=== PATIENT | female | born 1980 | race African-American/Black ===

== ENCOUNTER 2017-03-03 19:58 | Emergency (ER) | payer MEDICAID ==
[~2017-03-03] VITALS: Ht 154.9 cm; Wt 87.1 kg
--- NOTE | 2017-03-03 20:04 | PHYS DOC ---
Adult General Chief Complaint Chief Complaint: ABDOMINAL PAIN HPI HPI Patient is a 36 year old female presenting to the emergency department for evaluation of sudden onset right-sided abdominal pain radiating towards her right flank and associated with nausea but no vomiting diarrhea constipation dysuria hematuria vaginal bleeding or vaginal discharge. She says that that this does not recur with trauma or overuse that she was at work at the time. Patient says that she has never had pain like this before in the past that she is overall healthy except for fibromyalgia. Review of Systems Review of Systems Constitutional: Denies fever or chills [] Respiratory: Denies cough or shortness of breath [] Cardiovascular: No additional information not addressed in HPI [] GI: + abdominal pain, nausea. No vomiting, bloody stools or diarrhea [] : Denies dysuria or hematuria [] Musculoskeletal: + back pain Neurologic: Denies headache, focal weakness or sensory changes [] Current Medications Current Medications Current Medications Medications (Trade) Dose Ordered Sig/Dillon Start Time Stop Time Status Last Admin Dose Admin Fentanyl Citrate (Fentanyl 2ml Vial) 75 mcg 1X ONCE 03/03/17 21:00 03/03/17 21:01 DC 03/03/17 20:47 75 MCG Ketorolac Tromethamine (Toradol) 30 mg 1X ONCE 03/03/17 21:00 03/03/17 21:01 DC 03/03/17 20:46 30 MG Ondansetron HCl (Zofran) 8 mg 1X ONCE 03/03/17 21:00 03/03/17 21:01 DC 03/03/17 20:46 8 MG Oxycodone/ Acetaminophen (Percocet 5/325) 2 tab 1X ONCE 03/04/17 00:00 03/04/17 00:01 Sodium Chloride 1,000 ml @ 1,000 mls/hr 1X ONCE 03/03/17 21:00 03/03/17 21:59 DC 03/03/17 20:45 1,000 MLS/HR Allergies Allergies Allergies Coded Allergies Type Severity Reaction Last Updated Verified Penicillins Allergy Intermediate 03/03/17 Yes Physical Exam Physical Exam Constitutional: Well developed, well nourished, no acute distress, non-toxic appearance. [] Cardiovascular:Heart rate regular rhythm, no murmur [] Lungs & Thorax: Bilateral breath sounds clear to auscultation [] Abdomen: Bowel sounds normal, soft, + RLQ and RUQ tenderness, no rebound or guarding, no masses, no pulsatile masses. [] Skin: Warm, dry, no erythema, no rash. [] Back: + R CVA tenderness, no CVA tenderness. [] Extremities: No tenderness, no cyanosis, no clubbing, ROM intact, no edema. [] Neurologic: Alert and oriented X 3, normal motor function, normal sensory function, no focal deficits noted. [] Current Patient Data Vital Signs Vital Signs Date Time Temp Pulse Resp B/P (MAP) Pulse Ox O2 Delivery O2 Flow Rate FiO2 03/03/17 23:00 58 16 122/61 (81) 100 Room Air 03/03/17 20:14 98.0 98.0 Lab Values Laboratory Tests Test 03/03/17 20:15 03/03/17 20:21 Urine Collection Type Unknown Urine Color Esther Urine Clarity Clear Urine pH 6.5 Urine Specific [place] >=1.030 Urine Protein Negative mg/dL (NEG-TRACE) Urine Glucose (UA) Negative mg/dL (NEG) Urine Ketones (Stick) Trace mg/dL (NEG) Urine Blood Negative (NEG) Urine Nitrite Negative (NEG) Urine Bilirubin Small (NEG) Urine Urobilinogen Dipstick 1.0 mg/dL (0.2 mg/dL) Urine Leukocyte Esterase Trace (NEG) Urine RBC 3-5 /HPF (0-2) Urine WBC 1-4 /HPF (0-4) Urine Squamous Epithelial Cells Mod /LPF Urine Bacteria Moderate /HPF (0-FEW) Urine Mucus Marked /LPF White Blood Count 6.2 x10^3/uL (4.0-11.0) Red Blood Count 4.24 x10^6/uL (3.50-5.40) Hemoglobin 13.3 g/dL (12.0-15.5) Hematocrit 40.8 % (36.0-47.0) Mean Corpuscular Volume 96 fL (79-100) Mean Corpuscular Hemoglobin 32 pg (25-35) Mean Corpuscular Hemoglobin Concent 33 g/dL (31-37) Red Cell Distribution Width 14.7 % (11.5-14.5) H Platelet Count 177 x10^3/uL (140-400) Neutrophils (%) (Auto) 59 % (31-73) Lymphocytes (%) (Auto) 30 % (24-48) Monocytes (%) (Auto) 8 % (0-9) Eosinophils (%) (Auto) 2 % (0-3) Basophils (%) (Auto) 1 % (0-3) Neutrophils # (Auto) 3.7 x10^3uL (1.8-7.7) Lymphocytes # (Auto) 1.9 x10^3/uL (1.0-4.8) Monocytes # (Auto) 0.5 x10^3/uL (0.0-1.1) Eosinophils # (Auto) 0.1 x10^3/uL (0.0-0.7) Basophils # (Auto) 0.1 x10^3/uL (0.0-0.2) Sodium Level 140 mmol/L (136-145) Potassium Level 3.7 mmol/L (3.5-5.1) Chloride Level 104 mmol/L (98-107) Carbon Dioxide Level 25 mmol/L (21-32) Anion Gap 11 (6-14) Blood Urea Nitrogen 8 mg/dL (7-20) Creatinine 1.1 mg/dL (0.6-1.0) H Estimated GFR (Cockcroft-Gault) 68.8 BUN/Creatinine Ratio 7 (6-20) Glucose Level 94 mg/dL (70-99) Calcium Level 8.9 mg/dL (8.5-10.1) Magnesium Level 2.0 mg/dL (1.8-2.4) Total Bilirubin 0.4 mg/dL (0.2-1.0) Aspartate Amino Transferase (AST) 14 U/L (15-37) L Alanine Aminotransferase (ALT) 16 U/L (14-59) Alkaline Phosphatase 68 U/L (46-116) Total Protein 7.2 g/dL (6.4-8.2) Albumin 3.4 g/dL (3.4-5.0) Albumin/Globulin Ratio 0.9 (1.0-1.7) L Lipase 127 U/L (73-393) Laboratory Tests 03/03/17 20:21 Laboratory Tests 03/03/17 20:21 EKG EKG [] Radiology/Procedures Radiology/Procedures Abdominal and Pelvis CT, Without Contrast: History: Sudden onset of right flank to right upper quadrant pain. Comparison: None. Procedure: Axial images are obtained of the abdomen and pelvis, without IV or oral contrast. CT Abdomen without Contrast: Findings: Evaluation of solid organs is limited without contrast. Evaluation of stomach and bowel is limited without oral contrast. Liver: Normal. Spleen: Normal. Pancreas: Normal. Adrenal Glands: Normal. Kidneys: Normal. There is no free air or free fluid. There is no lymphadenopathy. The appendix is normal. Impression: Please see CT Pelvis without Contrast. End Impression. CT Pelvis without Contrast: Findings: The urinary bladder is mostly collapsed but appears normal. There is no free fluid. There is no lymphadenopathy. There is no pericolonic inflammation identified. There is a low-density lesion above the urinary bladder on the right that measures 6.0 x 4.0 cm. The uterus is not seen to be small or surgically removed. Soft tissue density anterior midline of the mid pelvis could be a scar. Impression: Low-density lesion on the right could be an ovarian cyst or hydrosalpinx. Recommend correlation with CA-125. A follow-up ultrasound of the pelvis may be helpful. End impression PQRS Compliance Statement: One or more of the following individualized dose reduction techniques were utilized for this examination: 1. Automated exposure control 2. Adjustment of the mA and/or kV according to patient size 3. Use of iterative reconstruction technique Electronically signed by: Rukhsana Lao III, MD (03/03/2017 9:24 PM) [facility] DICTATED and SIGNED BY: RUKHSANA LAO III, MD DATE: 03/03/172113 Ultrasound pelvis complete and transvaginal ultrasound pelvis HISTORY: Abnormal CT Sonographic examination of the pelvis was performed by transabdominal and endovaginal technique multiple static images were obtained. Ultrasound pelvis complete transabdominal: The right ovary measures 7.5 x 6.7 x 3.6 cm and contains 2 adjacent cysts measuring 3.0 x 3.1 x 2 point centimeters and 2.9 x 3.9 x 3.3 cm. The left ovary is not visualized. The uterus isn't visualized consistent with prior hysterectomy. Transvaginal ultrasound pelvis: The right ovary is better visualized there are 2 cysts one of which has considerable internal echoes. The larger cyst is more anechoic and measures 4.2 x 3.8 x 3.3 cm. The smaller cyst measures 3.5 x 2.7 x 3.3 cm. There is no free fluid. There is normal ovarian blood flow. IMPRESSION: 2 cysts in the right ovary. The smaller cyst has considerable internal debris. Recommend correlation with CA-125. Also recommend a 3 month follow-up ultrasound. Electronically signed by: Rukhsana Lao III, MD (03/03/2017 11:18 PM) [facility] DICTATED and SIGNED BY: RUKHSANA LAO III, MD DATE: 03/03/17 2313 Course & Med Decision Making Course & Med Decision Making Patient presenting to the emergency department for evaluation of right side abdominal pain in the setting of an abnormal CT. Pelvic ultrasound was done to confirm blood flow to the ovary and there is blood flow but there is too large ovarian cysts that are likely causing the pain. She has normal white blood cell count so do not think there is any infectious component to it and she denies any vaginal discharge. Patient's pain is much improved in the emergency department and her repeat abdominal exam is benign. Patient is feeling well and wants to go home but I did recommend she follow with a package delivery driver as soon as possible. I told her ovarian torsion precautions and to return with any concerns. Patient aware and agreeable with plan for discharge and verbalized understanding of the need for short-term follow-up and strict ED return precautions discussed worsening pain fevers vomiting or other general concerns. Dragon Disclaimer Dragon Disclaimer This electronic medical record was generated, in whole or in part, using a voice recognition dictation system. Departure Departure Impression: Primary Impression: Ovarian cyst Additional Impression: Abdominal pain Disposition: HOME, SELF-CARE Condition: STABLE Referrals: TALIB PEREZ Jr, MD Patient Instructions: Ovarian Cyst Additional Instructions: TAKE 400MG OF IBUPROFEN EVERY 6 HOURS AND THE NORCO FOR BREAKTHROUGH PAIN. FOLLOW WITH THE CITY ADMINISTRATOR [facility] AND COME BACK TO THE ED SOONER WITH WORSENING PAIN, FEVERS, VOMITING, OR OTHER GENERAL CONCERNS. THANK YOU! Scripts Ondansetron (ZOFRAN ODT) 4 Mg Tab.rapdis 4 MG PO BID Y for NAUSEA/VOMITING, #10 TAB Prov: TERESSA GORDON DO 03/03/17 Hydrocodone/Apap 5-325 (NORCO 5-325 TABLET) 1 Each Tablet 1 TAB PO PRN Q6HRS Y for PAIN, #20 TAB 0 Refills Prov: TERESSA GORDON DO 03/03/17 Problem Qualifiers Primary Impression: Ovarian cyst Laterality: right Qualified Codes: N83.201 - Unspecified ovarian cyst, right side TERESSA GORDON DO Mar 03, 2017 20:04
[2017-03-03 20:39] LABS: BASO # 0.1 x10^3/uL (0.0-0.2); BASO % 1 % (0-3); EOS % 2 % (0-3); HEMATOCRIT 40.8 % (36.0-47.0); HEMOGLOBIN 13.3 g/dL (12.0-15.5); LYMPH # 1.9 x10^3/uL (1.0-4.8); LYMPH % 30 % (24-48); MEAN CORPUSCULAR HEMOGLOBIN 32 pg (25-35); MEAN CORPUSCULAR HGB CONC 33 g/dL (31-37); MEAN CORPUSCULAR VOLUME 96 fL (79-100); MONO % 8 % (0-9); NEUT % 59 % (31-73); PLATELET COUNT 177 x10^3/uL (140-400); RED BLOOD COUNT 4.24 x10^6/uL (3.50-5.40); RED CELL DISTRIBUTION WIDTH 14.7 % (11.5-14.5); WHITE BLOOD COUNT 6.2 x10^3/uL (4.0-11.0)
[2017-03-03 20:40] LABS: BILIRUBIN,URINE SMALL (NEG); GLUCOSE,URINE NEGATIVE (NEG); NITRITE,URINE NEGATIVE (NEG); PH,URINE 6.5; PROTEIN,URINE NEGATIVE (NEG-TRACE)
[2017-03-03 20:53] LABS: CALCIUM 8.9 mg/dL (8.5-10.1); CREATININE 1.1 mg/dL (0.6-1.0); GFR 68.8; POTASSIUM 3.7 mmol/L (3.5-5.1)
[2017-03-03 20:55] LABS: BACTERIA,URINE MODERATE /HPF (0-FEW); SQUAMOUS EPITHELIAL CELL,UR MOD /LPF
[2017-03-03 20:59] LABS: ALBUMIN 3.4 g/dL (3.4-5.0); ALBUMIN/GLOBULIN RATIO 0.9 (1.0-1.7); TOTAL BILIRUBIN 0.4 mg/dL (0.2-1.0); TOTAL PROTEIN 7.2 g/dL (6.4-8.2)
[2017-03-03] MEDS ORDERED: IV NORMAL SALINE 1000ML BAG 1,000 ML IV ONE (21:00)
[2017-03-03] MEDS ORDERED: fentaNYL PF VIAL 100 MCG/2 ML VIAL IV ONE (21:00)
[2017-03-03] MEDS ORDERED: KETOROLAC 30 MG/ML INJ. IV ONE (21:00)
[2017-03-03] MEDS ORDERED: ONDANSETRON PF 4 MG/2 ML VIAL. IV ONE (21:00)
--- NOTE | 2017-03-03 21:28 | RAD ---
Abdominal and Pelvis CT, Without Contrast: History: Sudden onset of right flank to right upper quadrant pain. Comparison: None. Procedure: Axial images are obtained of the abdomen and pelvis, without IV or oral contrast. CT Abdomen without Contrast: Findings: Evaluation of solid organs is limited without contrast. Evaluation of stomach and bowel is limited without oral contrast. Liver: Normal. Spleen: Normal. Pancreas: Normal. Adrenal Glands: Normal. Kidneys: Normal. There is no free air or free fluid. There is no lymphadenopathy. The appendix is normal. Impression: Please see CT Pelvis without Contrast. End Impression. CT Pelvis without Contrast: Findings: The urinary bladder is mostly collapsed but appears normal. There is no free fluid. There is no lymphadenopathy. There is no pericolonic inflammation identified. There is a low-density lesion above the urinary bladder on the right that measures 6.0 x 4.0 cm. The uterus is not seen to be small or surgically removed. Soft tissue density anterior midline of the mid pelvis could be a scar. Impression: Low-density lesion on the right could be an ovarian cyst or hydrosalpinx. Recommend correlation with CA-125. A follow-up ultrasound of the pelvis may be helpful. End impression PQRS Compliance Statement: One or more of the following individualized dose reduction techniques were utilized for this examination: 1. Automated exposure control 2. Adjustment of the mA and/or kV according to patient size 3. Use of iterative reconstruction technique Electronically signed by: Lewis Lao III, MD (03/03/2017 9:24 PM) [facility]
--- NOTE | 2017-03-03 23:22 | RAD ---
Ultrasound pelvis complete and transvaginal ultrasound pelvis HISTORY: Abnormal CT Sonographic examination of the pelvis was performed by transabdominal and endovaginal technique multiple static images were obtained. Ultrasound pelvis complete transabdominal: The right ovary measures 7.5 x 6.7 x 3.6 cm and contains 2 adjacent cysts measuring 3.0 x 3.1 x 2 point centimeters and 2.9 x 3.9 x 3.3 cm. The left ovary is not visualized. The uterus isn't visualized consistent with prior hysterectomy. Transvaginal ultrasound pelvis: The right ovary is better visualized there are 2 cysts one of which has considerable internal echoes. The larger cyst is more anechoic and measures 4.2 x 3.8 x 3.3 cm. The smaller cyst measures 3.5 x 2.7 x 3.3 cm. There is no free fluid. There is normal ovarian blood flow. IMPRESSION: 2 cysts in the right ovary. The smaller cyst has considerable internal debris. Recommend correlation with CA-125. Also recommend a 3 month follow-up ultrasound. Electronically signed by: Lewis Lao III, MD (03/03/2017 11:18 PM) [facility]
[2017-03-03] MEDS ORDERED: HYDR-971 PO (23:54)
[2017-03-03] MEDS ORDERED: ONDA4TAB10 PO (23:54)
[2017-03-04] MEDS ORDERED: oxyCODONE/APAP 5/325 1 TAB TABLET PO ONE
[2017-03-04 00:05] VITALS: BP 114/65
== END 2017-03-04 00:05 | disposition home or self-care (01) ==
LOC: ER 19:58
DX: N83.201 Unspecified ovarian cyst, right side (principal); Z88.0 Allergy status to penicillin
CPT/HCPCS: 36415; 74176; 76830; 76856; 80053; 81001; 83690; 83735; 85025; 87086; 96361; 96374; 96375; 99285; J1885; J2405; J3010; J7030

== ENCOUNTER 2018-06-06 15:43 | Emergency (ER) | payer MEDICAID ==
[~2018-06-06] VITALS: Ht 154.9 cm; Wt 77.6 kg
[~2018-06-06 15:43] MED LIST: HYDR-3164 PO; ONDA4TAB10 PO
[2018-06-06] MEDS ORDERED: PROCHLORPERAZINE 10 MG/2 ML VIAL. IV ONE (16:15)
[2018-06-06] MEDS ORDERED: IV NORMAL SALINE 1000ML BAG 1,000 ML IV ONE (16:15)
[2018-06-06] MEDS ORDERED: KETOROLAC 30 MG/ML VIAL. IV ONE (16:15)
--- NOTE | 2018-06-06 16:16 | PHYS DOC ---
Past Medical History Past Medical History: Other Additional Past Medical Histor: DDD, NEUROPATHY, SKIN CA, UTERINE CA Past Surgical History: Hysterectomy, Tonsillectomy, Other Additional Past Surgical Histo: SPINAL CORD, BACK, HERNIA, BREAST REDUCTION Alcohol Use: Occasionally Drug Use: None Adult General Chief Complaint Chief Complaint: HEADACHE HPI HPI Patient is a 38 year old female who presents with migraine for the last 10 days. She is moved back here from [place] and saw a doctor who put her back on over medications. States she has a history of migraines and that this headache feels like her usual migraine. She states that they had her on Topamax for migraines but no longer have her medication. Patient states he did better on BuSpar due to increased anxiety and stress due to family illnesses and deaths recently. Patient states she has pain that goes behind her eyes patient states at times she will get flashing lights and she has photophobic at this time. She states she also has some nausea but no vomiting or diarrhea or fever or neck pain or stiffness. Patient states she's been taking Excedrin Migraine, Tylenol, BC powders with no relief. Review of Systems Review of Systems Constitutional: Denies fever or chills [] Eyes: Denies change in visual acuity, redness, or eye pain [] HENT: Denies nasal congestion or sore throat [] Respiratory: Denies cough or shortness of breath [] Cardiovascular: No additional information not addressed in HPI [] GI: Denies abdominal pain, nausea, vomiting, bloody stools or diarrhea [] : Denies dysuria or hematuria [] Musculoskeletal: Denies back pain or joint pain [] Integument: Denies rash or skin lesions [] Neurologic: Migraine, denies focal weakness or sensory changes [] All other systems were reviewed and found to be within normal limits, except as documented in this note. Current Medications Current Medications Current Medications Medications (Trade) Dose Ordered Sig/Dillon Start Time Stop Time Status Last Admin Dose Admin Ketorolac Tromethamine (Toradol 30mg Vial) 30 mg 1X ONCE 06/06/18 16:15 06/06/18 16:16 DC 06/06/18 16:33 30 MG Prochlorperazine Edisylate (Compazine) 10 mg 1X ONCE 06/06/18 16:15 06/06/18 16:16 DC 06/06/18 16:31 10 MG Sodium Chloride 1,000 ml @ 1,000 mls/hr 1X ONCE 06/06/18 16:15 06/06/18 17:14 DC 06/06/18 16:29 1,000 MLS/HR Allergies Allergies Allergies Coded Allergies Type Severity Reaction Last Updated Verified Penicillins Allergy Intermediate 03/03/17 Yes Physical Exam Physical Exam Constitutional: Well developed, well nourished, no acute distress, non-toxic appearance. [] HENT: Normocephalic, atraumatic, bilateral external ears normal, oropharynx moist, no oral exudates, nose normal. [] Eyes: PERRLA, EOMI, conjunctiva normal, no discharge. Photophobia. Neck: Normal range of motion, no tenderness, supple, no stridor. [] Cardiovascular:Heart rate regular rhythm, no murmur [] Lungs & Thorax: Bilateral breath sounds clear to auscultation [] Abdomen: Bowel sounds normal, soft, no tenderness, no masses, no pulsatile masses. [] Skin: Warm, dry, no erythema, no rash. [] Back: No tenderness, no CVA tenderness. [] Extremities: No tenderness, no cyanosis, no clubbing, ROM intact, no edema. [] Neurologic: Alert and oriented X 3, normal motor function, normal sensory function, no focal deficits noted. [] Psychologic: Affect normal, judgement normal, mood normal. [] Current Patient Data Vital Signs Vital Signs Date Time Temp Pulse Resp B/P (MAP) Pulse Ox O2 Delivery O2 Flow Rate FiO2 06/06/18 17:07 54 20 100 06/06/18 16:08 98.3 165/97 (119) Room Air 98.3 EKG EKG [] Radiology/Procedures Radiology/Procedures [] Course & Med Decision Making Course & Med Decision Making Patient is a 38 year old female who presents with migraine for the last 10 days. She is moved back here from [place] and saw a doctor who put her back on over medications. States she has a history of migraines and that this headache feels like her usual migraine. She states that they had her on Topamax for migraines but no longer have her medication. Patient states he did better on BuSpar due to increased anxiety and stress due to family illnesses and deaths recently. Patient states she has pain that goes behind her eyes patient states at times she will get flashing lights and she has photophobia at this time. She states she also has some nausea but no vomiting or diarrhea or fever or neck pain or stiffness. Patient states she's been taking Excedrin Migraine, Tylenol, BC powders with no relief. Patient states usually Toradol helps when she cannot get the pain go away herself. She is alert and oriented. Skin pink warm and dry. PERRLA. Neurologically intact. Denies numbness, tingling, shortness breath , chest pain, abdominal pain, nausea, vomiting, fever, neck pain or stiffness. Patient visual velarde are intact. Lungs are clear to auscultation all lobes. Vital signs are within normal limits. Heart rate regular without murmur. Patient is given Compazine and Toradol and IV fluid ED. 1710: Upon reexamination the patient, she is sleeping. I awakened her and ask how she fell and she states she is feeling better the pain is down to a 6 out of 10. Patient states is much more tolerable and she is feeling good. Patient given prescription for [place] she is to call her doctor tomorrow for follow-up care. Staff Physician Addendum: I was working in the ER during the course of this patient's visit. I was available for consultation as needed, but I was not directly involved in the care of this patient. Amadeo Disclaimer Amadeo Disclaimer This electronic medical record was generated, in whole or in part, using a voice recognition dictation system. Departure Departure Impression: Primary Impression: Migraine Disposition: 01 HOME, SELF-CARE Condition: STABLE Referrals: UNKNOWN PCP NAME (PCP) Patient Instructions: Migraine Headache Additional Instructions: I primary care tomorrow to let them know that her migraines are back and they have started approximately a day or 2 after you started BuSpar. Drink plenty of fluids and take medications as prescribed. Scripts Ondansetron (ONDANSETRON ODT) 4 Mg Tab.rapdis 1 TAB PO PRN Q6-8HRS, #16 TAB Prov: NAHOMI OLIVARES APRN 06/06/18 Hydrocodone/Apap 5-325 (NORCO 5-325 TABLET) 1 Each Tablet 1 TAB PO PRN Q6HRS PRN for PAIN, #10 TAB 0 Refills Prov: NAHOMI OLIVARES APRN 06/06/18 Problem Qualifiers Primary Impression: Migraine Migraine type: unspecified Status migrainosus presence: without status migrainosus Intractability: not intractable Qualified Codes: G43.909 - Migraine, unspecified, not intractable, without status migrainosus NAHOMI OLIVARES APRN Jun 06, 2018 16:16 RUBI GARCIA MD Jun 07, 2018 06:45
[2018-06-06 17:07] VITALS: BP 118/59
[2018-06-06] MEDS ORDERED: ONDA4TAB12 PO (17:16)
[2018-06-06] MEDS ORDERED: HYDR-3164 PO (17:16)
== END 2018-06-06 17:25 | disposition home or self-care (01) ==
LOC: ER 15:43
DX: G43.909 Migraine, unspecified, not intractable, without status migrainosus (principal); Z90.710 Acquired absence of both cervix and uterus; Z88.0 Allergy status to penicillin
CPT/HCPCS: 96374; 96375; 99283; J0780; J1885; J7030